=== PATIENT | female | born 1980 | race Caucasian/White ===

== ENCOUNTER 2018-11-24 15:07 | Inpatient (IN) | payer MEDICAID ==
[2018-11-24 15:39] LABS: ADD MAN DIFF? NO
[2018-11-24 15:41] LABS: WHITE BLOOD COUNT 7.5 10^3/ul (4.8-10.8)
[2018-11-24 15:42] LABS: BASOPHIL # 0.1 10^3/ul (0.0-0.1); BASOPHILS % 0.7 % (0.0-2.0); EOSINOPHILS # 0.2 10^3/ul (0.0-0.5); EOSINOPHILS % 2.9 % (0.0-7.0); HEMATOCRIT 37.6 % (37.0-47.0); HEMOGLOBIN 12.7 g/dl (12.0-16.0); LYMPHOCYTES # 1.2 10^3/ul (0.8-2.9); LYMPHOCYTES % 16.2 % (15.0-51.0); MEAN CORPUSCULAR HEMOGLOBIN 32.4 pg (29.0-33.0); MEAN CORPUSCULAR HGB CONC 33.8 g/dl (32.0-37.0); MEAN CORPUSCULAR VOLUME 95.9 fl (82.0-101.0); MEAN PLATELET VOLUME 12.6 fl (7.4-10.4); MONOCYTE # 0.6 10^3/ul (0.3-0.9); MONOCYTES % 7.4 % (0.0-11.0); NEUTROPHIL # 5.3 10^3/ul (1.6-7.5); NEUTROPHILS % 71.3 % (39.0-77.0); PLATELET COUNT 156 10^3/UL (140-415); RED BLOOD COUNT 3.92 10^6/ul (4.20-5.40); RED CELL DISTRIBUTION WIDTH 13.2 % (11.5-14.5)
[2018-11-24] MEDS: LACTATED RINGER'S 1,000 ML IV ×3 (15:42→17:47)
[2018-11-24 16:00] LABS: INR 0.82; PARTIAL THROMBOPLASTIN TIME 25.3 Sec (23.0-35.0); PROTIME 11.4 Sec (11.9-14.9); PT RATIO 0.9
[2018-11-24] MEDS ORDERED: OXYTOCIN 30 UNITS/LR 500 ML IV ×2 (16:00→18:00)
[2018-11-24] MEDS ORDERED: METHYLERGONOVINE 0.2 MG INJ IM ×2 (16:00→18:00)
[2018-11-24] MEDS ORDERED: CARBOPROST 250 MCG INJ IM ×2 (16:00→18:00)
[2018-11-24] MEDS ORDERED: MISOPROSTOL 200 MCG TAB PR ×2 (16:00→18:00)
[2018-11-24] MEDS: ONDANSETRON 4 MG INJ IV (16:14)
[2018-11-24] MEDS: METOCLOPRAMIDE 10 MG INJ IV (16:14)
[2018-11-24 16:33] LABS: HEPATITIS B SURFACE ANTIGEN NEGATIVE (NEGATIVE)
[2018-11-24] MEDS ORDERED: EPHEDrine 25 MG/5 ML SYG (16:34)
[2018-11-24] MEDS ORDERED: morphine SULFATE/PF (10 MG/10 ML) INJ (16:34)
[2018-11-24] MEDS ORDERED: PHENYLephrine (100 MCG/ML) 10ML SYG (16:34)
[2018-11-24] MEDS ORDERED: NALOXONE (0.4 MG/ML) INJ IV (17:30)
[2018-11-24] MEDS ORDERED: HYDROmorphONE 1 MG/5 ML IV SYRINGE IV ×2 (17:30)
[2018-11-24] MEDS ORDERED: DIPHENHYDRAMINE 50 MG INJ IV ×2 (17:30)
[2018-11-24] MEDS ORDERED: FENTAnyl 50 MCG/ML VIAL IV ×2 (17:30)
[2018-11-24] MEDS ORDERED: HYDROmorphONE 0.5 MG/0.5 ML SYG IV ×2 (17:30)
[2018-11-24] MEDS ORDERED: METOCLOPRAMIDE 10 MG INJ IV (17:30)
[2018-11-24] MEDS ORDERED: ONDANSETRON 4 MG INJ IV ×2 (17:30)
[2018-11-24] MEDS ORDERED: ALBUTEROL 0.083% (NEB) 2.5 MG/3 ML AMP HHN (17:30)
[2018-11-24] MEDS: OXYTOCIN 30 UNITS/LR 500 ML IV ×2 (17:53→22:41)
[2018-11-24] MEDS ORDERED: METHYLERGONOVINE 0.2 MG TAB PO (18:00)
[2018-11-24] MEDS: KETOROLAC 30 MG INJ IV (20:13)
[2018-11-24] MEDS: CEFAZOLIN 2 GM/50 ML (PMX) 50 ML IVPB (20:13)
[2018-11-24] MEDS: SENNA/DOCUSATE NA (8.6MG/50MG) TAB PO ×2 (21:00→22:41)
[2018-11-24] MEDS: LANOLIN HPA 1 PKT TOP (22:41)
[2018-11-25] MEDS: KETOROLAC 30 MG INJ IV ×2 (05:19→11:36)
[2018-11-25 06:15] LABS: ADD MAN DIFF? NO
[2018-11-25 06:31] LABS: WHITE BLOOD COUNT 7.6 10^3/ul (4.8-10.8)
[2018-11-25 06:31] LABS: BASOPHILS % 0.5 % (0.0-2.0); EOSINOPHILS # 0.2 10^3/ul (0.0-0.5); EOSINOPHILS % 2.2 % (0.0-7.0); HEMATOCRIT 30.3 % (37.0-47.0); HEMOGLOBIN 10.1 g/dl (12.0-16.0); LYMPHOCYTES % 12.5 % (15.0-51.0); MEAN CORPUSCULAR HEMOGLOBIN 32.3 pg (29.0-33.0); MEAN CORPUSCULAR HGB CONC 33.3 g/dl (32.0-37.0); MEAN CORPUSCULAR VOLUME 96.8 fl (82.0-101.0); MEAN PLATELET VOLUME 12.4 fl (7.4-10.4); MONOCYTE # 0.6 10^3/ul (0.3-0.9); MONOCYTES % 7.2 % (0.0-11.0); NEUTROPHIL # 5.9 10^3/ul (1.6-7.5); NEUTROPHILS % 77.1 % (39.0-77.0); PLATELET COUNT 113 10^3/UL (140-415); RED BLOOD COUNT 3.13 10^6/ul (4.20-5.40); RED CELL DISTRIBUTION WIDTH 13.6 % (11.5-14.5)
[2018-11-25 06:43] LABS: ANION GAP 3 (5-13); BLOOD UREA NITROGEN 9 mg/dl (7-20); CALCIUM 8.2 mg/dl (8.4-10.2); CARBON DIOXIDE 26 mmol/L (21-31); CHLORIDE 100 mmol/L (97-110); CREATININE 0.57 mg/dl (0.44-1.00); Estimated GFR > 60 mL/min (>60); GLUCOSE 89 mg/dl (70-220); POTASSIUM 4.5 mmol/L (3.5-5.1); SODIUM 129 mmol/L (135-144)
[2018-11-25] MEDS: SENNA/DOCUSATE NA (8.6MG/50MG) TAB PO ×2 (09:09→23:43)
[2018-11-25] MEDS: LACTATED RINGER'S 1,000 ML IV ×3 (11:36→23:31)
[2018-11-25 16:13] LABS: RAPID PLASMA REAGIN NONREACTIVE (NR)
[2018-11-25] MEDS: IBUPROFEN 800 MG TAB PO ×2 (17:44→23:43)
[2018-11-26] MEDS: LACTATED RINGER'S 1,000 ML IV (07:31)
[2018-11-26] MEDS: SENNA/DOCUSATE NA (8.6MG/50MG) TAB PO ×2 (08:32→21:14)
[2018-11-26] MEDS: HYDROCODONE/APAP (5/325) TAB PO ×2 (08:33→17:24)
[2018-11-26] MEDS: IBUPROFEN 800 MG TAB PO ×2 (12:19→23:29)
[2018-11-27] MEDS: HYDROCODONE/APAP (5/325) TAB PO ×3 (03:19→15:54)
[2018-11-27] MEDS: IBUPROFEN 800 MG TAB PO ×2 (05:32→12:02)
[2018-11-27] MEDS: LACTATED RINGER'S 1,000 ML IV (07:31)
[2018-11-27] MEDS: DIPHTH/TET/ACEL PERTUSS (ADULT) 0.5 ML VIAL IM* (07:34)
[2018-11-27] MEDS: MEASLES,MUMPS,RUBELLA VACCINE INJ SC* (07:34)
[2018-11-27 08:02] LABS: ADD MAN DIFF? NO
[2018-11-27 08:09] LABS: BASOPHILS % 0.2 % (0.0-2.0); EOSINOPHILS % 0.7 % (0.0-7.0); HEMATOCRIT 27.9 % (37.0-47.0); HEMOGLOBIN 9.2 g/dl (12.0-16.0); LYMPHOCYTES # 0.8 10^3/ul (0.8-2.9); LYMPHOCYTES % 17.4 % (15.0-51.0); MEAN CORPUSCULAR HEMOGLOBIN 32.2 pg (29.0-33.0); MEAN CORPUSCULAR VOLUME 97.6 fl (82.0-101.0); MEAN PLATELET VOLUME 12.2 fl (7.4-10.4); MONOCYTE # 0.3 10^3/ul (0.3-0.9); NEUTROPHIL # 3.4 10^3/ul (1.6-7.5); PLATELET COUNT 156 10^3/UL (140-415); RED BLOOD COUNT 2.86 10^6/ul (4.20-5.40); RED CELL DISTRIBUTION WIDTH 13.6 % (11.5-14.5)
[2018-11-27 08:09] LABS: WHITE BLOOD COUNT 4.6 10^3/ul (4.8-10.8)
[2018-11-27] MEDS: SENNA/DOCUSATE NA (8.6MG/50MG) TAB PO (08:58)
[2018-11-27] MEDS: LANOLIN HPA 1 PKT TOP (10:12)
[2018-11-27] MEDS: BISACODYL 10 MG SUPP PR (15:49)
[2018-11-27] MEDS: MAGNESIUM HYDROXIDE 30ML CUP PO (15:49)
[2018-11-27] MEDS ORDERED: NA PHOSPHATE/BIPHOS 133 ML ENEMA PR (18:00)
== END 2018-11-27 17:15 | disposition home or self-care (01) | DRG 788 ==
LOC: L-D 15:07 → PP1 21:13
PROVIDERS: Obstetrics & Gynecology
PROC: 10D00Z1 Extraction of Products of Conception, Low, Open Approach (ICD-10-PCS; principal; 2018-11-24 16:00)
DX: O34.211 Maternal care for low transverse scar from previous cesarean delivery (principal); Z3A.39 39 weeks gestation of pregnancy; Z37.0 Single live birth
CPT/HCPCS: 80048; 85025; 85610; 85730; 86592; 86850; 86900; 86901; 87340; 99464